=== PATIENT | female | born 1980 | race American Indian/Alaskan Native ===

== ENCOUNTER 2019-10-08 18:00 | Emergency (ER) | payer SELFPAY ==
[2019-10-08 18:40] VITALS: BP 125/56
[2019-10-08] MEDS ORDERED: DIPHtheria,PERTUSSIS(ACELL),TETANUS VACCINE/PF 0.5 ML VIAL IM ONE (20:59)
--- NOTE | 2019-10-08 21:09 | Emergency Department Report ---
- General Chief Complaint: Wound/Laceration Stated Complaint: NIPPLE RING LAC Time Seen by Provider: 10/08/19 20:55 Source: patient Mode of arrival: Ambulatory Limitations: No Limitations - History of Present Illness Initial Comments: Pt is a 38 yo female who presents to the ED with c/o right nipple laceration that occurred earlier today. she states that she had a nipple piercing present and that it got stuck on the shower door and ripped through the skin. she states it was a straight bar piercing. she states there has been a small amount of bleeding. she denies any numbness or weakness. she is unsure of her last tetanus immunization. no pmhx. no allergies to meds. - Related Data Previous Rx's Medication Instructions Recorded Last Taken Type cephALEXin [Keflex] 500 mg PO QID 7 Days #56 cap 10/08/19 Unknown Rx Allergies Allergy/AdvReac Type Severity Reaction Status Date / Time No Known Allergies Allergy Unverified 10/08/19 18:38 ED Review of Systems ROS: Stated complaint: NIPPLE RING LAC Other details as noted in HPI Comment: All other systems reviewed and negative ED Past Medical Hx - Past Medical History Previous Medical History?: No - Surgical History Past Surgical History?: No - Social History Smoking Status: Never Smoker Substance Use Type: None - Medications Home Medications: Home Medications Medication Instructions Recorded Confirmed Last Taken Type cephALEXin [Keflex] 500 mg PO QID 7 Days #56 cap 10/08/19 Unknown Rx ED Physical Exam - General Limitations: No Limitations General appearance: alert, in no apparent distress - Head Head exam: Present: atraumatic, normocephalic - Eye Eye exam: Present: normal appearance - ENT ENT exam: Present: mucous membranes moist - Neurological Exam Neurological exam: Present: alert, oriented X3 - Psychiatric Psychiatric exam: Present: normal affect, normal mood - Skin Skin exam: Present: warm, dry, other (breast exam, railroad car loader RITA stoddard: pt has 0.5 cm laceration present to the medial surface of the left nipple, very small area of dried blood, no gross blood) ED Course Vital Signs 10/08/19 18:38 Temperature 98 F Pulse Rate 82 Respiratory 18 Rate Blood Pressure 125/56 [Right] O2 Sat by Pulse 97 Oximetry - Laceration /Wound Repair Right Chest Wound Location: chest (right nipple) Wound Length (cm): 1 (0.5 cm total) Wound's Depth, Shape: superficial Wound Explored: clean Irrigated w/ Saline (ccs): 50 Betadine Prep?: Yes Wound Repaired With: Steri-strips, Dermabond Layer Closure?: No Sterile Dressing Applied?: Yes Progress: Wound irrigated with saline and thoroughly scrubbed with Betadine, no active bleeding, very superficial, used multiple layers of Dermabond, good skin approximation, patient tolerated well, No complications, bleeding controlled, sterile dressing applied ED Medical Decision Making - Medical Decision Making Pt is a 38 yo female who presents to the ED with c/o right nipple laceration that occurred earlier today. she states that she had a nipple piercing present and that it got stuck on the shower door and ripped through the skin. she states it was a straight bar piercing. she states there has been a small amount of bleeding. she denies any numbness or weakness. she is unsure of her last tetanus immunization. no pmhx. no allergies to meds. vitals are normal. on exam:breast exam, dariel stoddard RN: pt has 0.5 cm laceration present to the medial surface of the left nipple, very small area of dried blood, no gross blood. Wound irrigated with saline and scrubbed with Betadine and repaired with Dermabond and Steri-Strips per procedure note. pt given prescription for keflex. advised pt Please take medication as prescribed. Please keep area clean, dry, covered. Please keep area dry for the next 2 days and do not get area wet. After 2 days may wash with antibacterial soap and water and immediately dry. No hot tub, no pool, no soaking in water. Follow-up with a primary care doctor for reexamination. Return to emergency room for any new or worsening symptoms or any worsening signs of infection despite antibiotic therapy. Critical care attestation.: If time is entered above; I have spent that time in minutes in the direct care of this critically ill patient, excluding procedure time. ED Disposition Clinical Impression: Laceration Disposition: [id number] TO HOME OR SELFCARE Is pt being admited?: No Does the pt Need Aspirin: No Condition: Stable Instructions: Laceration (ED), Skin Adhesive Care (ED) Additional Instructions: Please take medication as prescribed. Please keep area clean, dry, covered. Please keep area dry for the next 2 days and do not get area wet. After 2 days may wash with antibacterial soap and water and immediately dry. No hot tub, no pool, no soaking in water. Follow-up with a primary care doctor for reexamination. Return to emergency room for any new or worsening symptoms or any worsening signs of infection despite antibiotic therapy. Prescriptions: cephALEXin [Keflex] 500 mg PO QID 7 Days #56 cap Referrals: MARY ALICE SPRING MD [Staff Physician] - 3-5 Days [facility] [Provider Group] - 3-5 Days [facility] [Outside] - 3-5 Days Time of Disposition: 21:11 Print Language: MOLDOVAN
== END 2019-10-08 21:17 | disposition home or self-care (01) ==
LOC: ED 18:00
DX: S21.011A Laceration without foreign body of right breast, initial encounter (principal); W45.8XXA Other foreign body or object entering through skin, initial encounter; Y93.89 Activity, other specified; Y92.89 Other specified places as the place of occurrence of the external cause; Y99.8 Other external cause status
CPT/HCPCS: 90471; 90715; 99282